=== PATIENT | male | born 1995 | race Caucasian/White ===

== ENCOUNTER 2020-04-26 00:05 | Emergency (ER) | payer OTHER ==
[~2020-04-26] VITALS: Ht 175.3 cm; Wt 73.6 kg
[2020-04-26 00:07] VITALS: BP 127/76
[2020-04-26] MEDS ORDERED: AMOXICILLIN/CLAV 875-125MG TABLET ONE (01:27)
[2020-04-26] MEDS ORDERED: AMOXICILLIN/CLAV 875-125MG TABLET PO ONE (01:30)
== END 2020-04-26 01:38 | disposition home or self-care (01) ==
LOC: ED 01:00
DX: L03.221 Cellulitis of neck (principal)
CPT/HCPCS: 99283